=== PATIENT | female | born 1990 | race Caucasian/White ===

== ENCOUNTER 2020-04-30 06:08 | Inpatient (IN) ==
[2020-04-30] MEDS ORDERED: Metoclopramide 10 MG/2 ML VIAL IVP ONE (06:33)
[2020-04-30] MEDS ORDERED: Famotidine 20 MG/2 ML VIAL IVP ONE (06:33)
[2020-04-30] MEDS ORDERED: CeFAZolin 2,000 MG/50 ML BAG IVPB ONE (06:33)
[2020-04-30] MEDS ORDERED: Ringers Solution, Lactated 1,000 ML IVC ONE (06:33)
[2020-04-30] MEDS ORDERED: Oxytocin 20 units/ LR 1000 mL 20 UNIT/1,000 ML BAG IVC ONE (06:33)
[2020-04-30] MEDS ORDERED: Ringers Solution, Lactated 1,000 ML ONE ×3 (06:34→09:22)
[2020-04-30 06:43] LABS: Amphetamine Screen,Urine Negative ng/mL (Cutoff=1000); Barbiturate Screen,Urine Negative ng/mL (Cutoff=200); Basophils % 0.2 %; Eosinophils # 0.1 K/mcL (0.0-0.6); Hematocrit 34.8 % (35.3-44.9); Immature Granulocytes % 0.8 % (0-4); Lymphocytes # 1.5 K/mcL (0.6-4.6); Lymphocytes % 17.2 %; Mean Corpuscular HGB Conc 31.6 g/dL (31.6-35.5); Mean Corpuscular Hemoglobin 27.9 pg (28.0-33.3); Mean Corpuscular Volume 88.3 fL (83.0-100.0); Mean Platelet Volume 11.1 fL (9.4-12.4); Monocytes # 0.9 K/mcL (0.0-1.3); Neutrophils # 6.2 K/mcL (1.6-8.9); Platelet Count 211 K/mcL (140-400); Red Blood Count 3.94 M/mcL (3.82-4.97); Segmented Neutrophils % 70.8 %; White Blood Count 8.7 K/mcL (4.3-11.1)
[2020-04-30 06:44] LABS: Benzodiazepines Screen,Urine Negative ng/mL (Cutoff=300); Cannabinoid Screen,Urine Negative ng/mL (Cutoff = 50); Cocaine Screen,Urine Negative ng/mL (Cutoff= 300); Opiate Screen,Urine Negative ng/mL (Cutoff=300); Phencyclidine Screen,Urine Negative ng/mL (Cutoff=25)
[2020-04-30] MEDS ORDERED: Oxytocin 20 units/ LR 1000 mL 20 UNIT/1,000 ML BAG IVC SCH ×3 (06:45→11:59)
[2020-04-30] MEDS ORDERED: Ringers Solution, Lactated 1,000 ML IVC SCH ×2 (06:45→11:59)
[2020-04-30] MEDS ORDERED: Dexamethasone 4 MG/ML VIAL ONE (08:26)
[2020-04-30] MEDS ORDERED: *HR* Oxytocin 10 UNIT/ML VIAL IM ONE ×2 (08:26→09:22)
[2020-04-30] MEDS ORDERED: Ondansetron 4 MG/2 ML VIAL ONE (08:26)
[2020-04-30] MEDS ORDERED: Acetaminophen IV 1,000 MG/100 ML INFUS..BTL ONE (08:28)
[2020-04-30] MEDS ORDERED: *HR* FentaNYL (PF) 100 MCG/2 ML VIAL ONE (08:40)
[2020-04-30] MEDS ORDERED: Ketorolac 30 MG/ML VIAL ONE (08:41)
[2020-04-30] MEDS ORDERED: *HR* HYDROMORPHONE 2 MG/ML VIAL ONE (08:50)
[2020-04-30] MEDS ORDERED: *HR* Propofol 200 MG/20 ML VIAL IVP ONE (08:56)
[2020-04-30] MEDS ORDERED: *HR* FentaNYL (PF) 100 MCG/2 ML VIAL IVP ONE (09:44)
[2020-04-30] MEDS ORDERED: *HR* HYDROmorphone PF 0.5 MG/0.5 ML SYRINGE IVP PRN (09:44)
[2020-04-30] MEDS ORDERED: Metoclopramide 10 MG/2 ML VIAL IVP PRN (11:59)
[2020-04-30] MEDS ORDERED: Sennosides 8.6 MG TABLET PO PRN (11:59)
[2020-04-30] MEDS ORDERED: Rho Immune Globulin 1,500 UNIT SYRINGE IM ONE (11:59)
[2020-04-30] MEDS ORDERED: Simethicone 80 MG TAB.CHEW PO PRN (11:59)
[2020-04-30] MEDS ORDERED: Ondansetron 4 MG/2 ML VIAL IVP PRN (11:59)
[2020-04-30] MEDS: *HR* OxyCODONE Immed Rel 5 MG TABLET PO PRN ×3 (12:43→21:29)
[2020-04-30] MEDS: Ibuprofen 600 MG TABLET PO PRN ×2 (14:49→20:14)
[2020-04-30] MEDS: Acetaminophen 325 MG TABLET PO PRN (21:47)
[2020-05-01] MEDS: *HR* OxyCODONE Immed Rel 5 MG TABLET PO PRN ×4 (02:44→15:42)
[2020-05-01] MEDS: Ibuprofen 600 MG TABLET PO PRN ×2 (02:45→08:53)
[2020-05-01 05:07] LABS: Basophils % 0.3 %; Eosinophils # 0.1 K/mcL (0.0-0.6); Eosinophils % 0.8 %; Hematocrit 28.2 % (35.3-44.9); Immature Granulocytes % 0.5 % (0-4); Lymphocytes # 1.9 K/mcL (0.6-4.6); Lymphocytes % 18.7 %; Mean Corpuscular HGB Conc 31.6 g/dL (31.6-35.5); Mean Corpuscular Hemoglobin 28.3 pg (28.0-33.3); Mean Corpuscular Volume 89.5 fL (83.0-100.0); Monocytes % 9.4 %; Neutrophils # 7.1 K/mcL (1.6-8.9); Platelet Count 175 K/mcL (140-400); Red Blood Count 3.15 M/mcL (3.82-4.97); Red Cell Distribution Width 16.4 % (11.5-14.5); Segmented Neutrophils % 70.3 %; White Blood Count 10.1 K/mcL (4.3-11.1)
[2020-05-01 05:12] LABS: Hemoglobin 8.9 g/dL (11.5-15.4)
[2020-05-01] MEDS: Acetaminophen 325 MG TABLET PO PRN ×2 (06:52→13:15)
[2020-05-01 07:43] VITALS: BP 121/84
[2020-05-01] MEDS ORDERED: Prenatal Vit/FA 1 EACH TABLET PO SCH (09:00)
== END 2020-05-01 18:34 | disposition home or self-care (01) | DRG 540 ==
LOC: 1NENULAB 06:08 → 1NENUOBS 11:55
PROVIDERS: ADMIT Student in an Organized Health Care Education/Training Program; ATTEND Student in an Organized Health Care Education/Training Program

== ENCOUNTER → 2021-11-21 19:37 | Observation (INO) ==
[2021-11-21 13:22] LABS: Basophils # 0.1 K/mcL (0.0-0.2); Basophils % 0.7 %; Eosinophils # 0.2 K/mcL (0.0-0.6); Immature Granulocytes % 1.3 % (0-4); Lymphocytes # 2.4 K/mcL (0.6-4.6); Lymphocytes % 28.1 %; Mean Corpuscular HGB Conc 33.6 g/dL (31.6-35.5); Mean Corpuscular Hemoglobin 29.8 pg (28.0-33.3); Mean Corpuscular Volume 88.9 fL (83.0-100.0); Mean Platelet Volume 9.9 fL (9.4-12.4); Monocytes # 0.6 K/mcL (0.0-1.3); Monocytes % 6.6 %; Neutrophils # 5.2 K/mcL (1.6-8.9); Platelet Count 260 K/mcL (140-400); Red Blood Count 3.15 M/mcL (3.82-4.97); Red Cell Distribution Width 13.7 % (11.5-14.5); Segmented Neutrophils % 61.3 %; White Blood Count 8.5 K/mcL (4.3-11.1)
[2021-11-21 13:24] LABS: Hemoglobin 9.4 g/dL (11.5-15.4)
[2021-11-21 18:02] VITALS: TEMP 98
[2021-11-21 18:12] VITALS: O2SAT 97
[2021-11-21 18:45] VITALS: BP 129/71; PULSE 102
[~2021-11-21 19:37] MED LIST: *HR* FentaNYL (PF) 100 MCG/2 ML VIAL ONE; *HR* HYDROMORPHONE 2 MG/ML VIAL ONE; *HR* HYDROmorphone PF 0.5 MG/0.5 ML SYRINGE IVP PRN; *HR* Labetalol 20 MG/4 ML SYRINGE IVP PRN; *HR* Promethazine 25 MG/ML VIAL ONE; Acetaminophen IV 1,000 MG/100 ML BAG IVPB ONE; CeFAZolin 2,000 MG/120 ML BAG IVPB SCH; Ketorolac 30 MG/ML VIAL ONE; Lidocaine -MPF 2% 5 ML VIAL ONE; Methylergonovine 0.2 MG/ML AMPUL IM ONE; Naloxone 0.4 MG/ML INJ IVP PRN; Ondansetron 4 MG/2 ML VIAL ONE; Promethazine 6.25 MG in Water for inj. (sterile) 20 ML IVPB PRN; Ringers Solution, Lactated 1,000 ML IVC SCH; Ringers Solution, Lactated 1,000 ML ONE; Scopolamine Patch 1.5 MG PATCH.TD72 TD ONE
== END | disposition home or self-care (01) ==
LOC: 1NENULAB
PROVIDERS: ADMIT Obstetrics & Gynecology; ATTEND Obstetrics & Gynecology